=== PATIENT | female | born 1985 | race Caucasian/White ===

== ENCOUNTER 2016-02-29 07:59 | Outpatient (CLI) | payer OTHER ==
[~2016-02-29 07:59] MED LIST: ABILIFY5 MG PO; ACYCLOVIR200 MG PO; PRENATA1 PO; PRENATAL1 TAB
== END 2016-02-29 23:00 ==
LOC: LAB SRH 07:59
DX: Z34.82 Encounter for supervision of other normal pregnancy, second trimester (principal)
CPT/HCPCS: 90039; 90074; 91162; 91163

== ENCOUNTER 2016-03-19 19:31 | Outpatient (CLI) | payer OTHER | END 2016-03-19 20:20 | disposition home or self-care (01) | LOC: OBC SRH 19:31 → OB SRH 19:34 → OBC SRH 20:20 | PROC: 4A0HXCZ Measurement of Products of Conception, Cardiac Rate, External Approach (ICD-10-PCS; principal; 2016-03-19) | DX: O36.8130 Decreased fetal movements, third trimester, not applicable or unspecified (principal); Z3A.33 33 weeks gestation of pregnancy | CPT/HCPCS: 40003; 40016 ==

== ENCOUNTER 2016-04-25 21:56 | Outpatient (CLI) | payer OTHER | END 2016-04-25 23:05 | disposition home or self-care (01) | LOC: OBC SRH 21:56 → OB SRH 22:42 → OBC SRH 23:05 | PROC: 4A0HXCZ Measurement of Products of Conception, Cardiac Rate, External Approach (ICD-10-PCS; principal; 2016-04-25) | DX: O47.1 False labor at or after 37 completed weeks of gestation (principal); Z3A.38 38 weeks gestation of pregnancy ==

== ENCOUNTER 2016-04-30 06:45 | Inpatient (IN) | payer OTHER ==
[~2016-04-30] VITALS: Ht 168.9 cm; Wt 96.2 kg
[2016-04-30] VITALS (7 sets, daily range): BP systolic 97–119; BP diastolic 55–63
[2016-05-01 00:17] VITALS: BP 112/58
[2016-05-01 04:52] VITALS: BP 106/55
--- NOTE | 2016-05-01 08:22 | Provider's Discharge Care Plan ---
Problem, Goal, Plan Problem List 1. care following vaginal delivery Goals: Improve disease control Instructions: Follow up as needed
--- NOTE | 2016-05-01 08:22 | Provider's Discharge Care Plan ---
Problem, Goal, Plan Problem List 1. care following vaginal delivery Goals: Improve disease control Instructions: Follow up as needed
[2016-05-01 08:32] VITALS: BP 116/68
== END 2016-05-01 15:15 | disposition home or self-care (01) | DRG 560 ==
LOC: OBC SRH 06:45 → OB SRH 06:48 → OBC SRH 09:27 → OB SRH 05-01 14:08
PROVIDERS: ADMIT Obstetrics & Gynecology
PROC: 10E0XZZ Delivery of Products of Conception, External Approach (ICD-10-PCS; principal; 2016-04-30)
DX: O69.81X0 Labor and delivery complicated by cord around neck, without compression, not applicable or unspecified (principal); Z37.0 Single live birth; O98.32 Other infections with a predominantly sexual mode of transmission complicating childbirth; A60.04 Herpesviral vulvovaginitis; Z79.899 Other long term (current) drug therapy; Z3A.39 39 weeks gestation of pregnancy
CPT/HCPCS: 40011; 83411; 90001; 90074; 90155; 91004; 91162; 91163; 95059

== ENCOUNTER 2016-06-13 12:09 | Emergency (ER) | payer OTHER ==
--- NOTE | 2016-06-13 14:10 | ED CLINICAL REPORT ---
Clinical Report - Physicians/Mid Levels [facility] [address] [place] [address] 06/13/2016 12:09 Patient: MARC BURR *This is a preliminary document and is subject to change Time Seen: 12:21; initial patient contact. Arrived- By private vehicle. Historian- patient. HISTORY OF PRESENT ILLNESS Chief Complaint: VAGINAL BLEEDING. This started about 3 days ago and still present. It has been constant. The symptoms are described as mild. Modifying factors. Not worsened by anything. Not relieved by anything. The patient has had mild, aching, intermittent abdominal pain. The pain is described as located in the upper abdomen. No pelvic pain, vaginal pain, low back pain, flank pain or vaginal discharge. No pain with urination, urinary frequency, urgency of urination or hematuria. The patient has had irregular periods. Not sexually active. Denies current . Similar symptoms previously: None. Recent medical care: Not recently seen/assessed. REVIEW OF SYSTEMS No nausea, vomiting, diarrhea, fever or chills. All systems otherwise negative, except as recorded above. PAST HISTORY ( Suture Removal. Laceration.). SOCIAL HISTORY Never smoker. No alcohol use or drug use. ADDITIONAL NOTES The nursing notes have been reviewed. PHYSICAL EXAM Vital Signs: 06/13/2016 12:27 BP: 117/71. HR: 65. RR: 16. O2 saturation: 100%. Temp: 98.3 F. Have been reviewed as normal. Appearance: Alert. Oriented X3. No acute distress. HEENT: Normal external inspection. ENT: Pharynx normal. CVS: Heart sounds normal. Rate normal. Rhythm normal. Respiratory: No respiratory distress. Breath sounds normal. Abdomen: Soft and nontender. Bowel sounds normal. No organomegaly. No mass. Skin: Skin warm and dry. Normal skin color. No rash. Extremities: No lower extremity edema. Neuro: Oriented X 3. LABS, X-RAYS, AND EKG Laboratory Tests: UA-Culture if indicated: (JESSICA: 06/13/2016 12:35) ( MsgRcvd 06/13/2016 12:55) Final results Test Result Flag Units (Reference) URINE COLOR YELLOW BLOOD TINGED URINE APPEARANCE CLOUDY URINE GLUCOSE NEGATIVE (NEGATIVE) URINE BILIRUBIN NEGATIVE (NEGATIVE) URINE KETONE NEGATIVE (NEGATIVE) URINE SPECIFIC GRAVITY 1.010 (1.010-1.030) URINE PH 7.5 (5.0-8.0) URINE PROTEIN NEGATIVE (NEGATIVE) URINE UROBILINOGEN 0.2 EU/dL (0.2-1.0) URINE NITRITE NEGATIVE (NEGATIVE) URINE BLOOD 3+ (NEGATIVE) URINE LEUK ESTERASE NEGATIVE (NEGATIVE) URINE RBC >100 rbc/hpf (0-1) URINE WBC 3-5 wbc/hpf (0-1) URINE EPITHELIAL CELLS 0-1 EPI/hpf (0-5) URINE BACTERIA TRACE (<1+) (NONE SEEN) URINE COMMENT CULT NOT INDICATED URINE CULTURES ARE SET-UP BASED ON THE FOLLOWING CRITERIA:POSITIVE NITRITEPOSITIVE LEUKOCYTE ESTERASEGREATER THAN 10 WHITE BLOOD CELLSMODERATE (2+) OR GREATER BACTERIA Urine: (JESSICA: 06/13/2016 12:35) ( [facility] 06/13/2016 12:48) Final results Test Result Flag Units (Reference) URINE NEGATIVE CBC w Diff: (JESSICA: 06/13/2016 13:00) ( [facility] 06/13/2016 13:14) Final results Test Result Flag Units (Reference) WHITE BLOOD COUNT 6.2 K/uL (4.5-11.5) RED BLOOD COUNT 4.56 M/uL (4.00-5.20) HEMOGLOBIN 12.6 gm/dL (12.0-16.0) HEMATOCRIT 37.9 % (36.0-46.0) MEAN CELL VOLUME 83 fL (80-100) MEAN CORPUSCULAR HGB 28 pg (26-34) MEAN CORPUSCULAR HGB CONC 33 g/dL (31-37) RED CELL DISTRIBUTION WIDTH 14.2 % (11.6-14.8) PLATELET COUNT 210 K/uL (150-400) NEUTROPHIL % 61.3 % (50-75) LYMPH % 31.4 % (25-40) MONO % 5.4 % (3-14) EOSINOPHIL % 1.5 % (0-4) BASOPHIL % 0.4 % (0-2) . [address]
--- NOTE | 2016-06-13 14:10 | ED ORDER SUMMARY ---
..... Patient: LENO May OrderSheet [facility] VisitID: [id number] [address] [place] [address] 31y, F Registration Date/Time: 06/13/2016 ORDER SHEET Weight: 86.1 kg (stated) Allergies: No Known Drug Allergy GENERAL ORDERS: Urine Urgent (12:37 06/13/2016 Margarita Fernández) (Ack 12:40 TBergley) (12:40 MWinterer R.N.) UA-Culture if indicated Urgent (12:37 06/13/2016 Margarita Fernández) (Ack 12:40 TBergley) (12:40 MWinterer R.N.) CBC w Diff Urgent (12:48 06/13/2016 Margarita Fernández) (Ack 13:01 TBergley) (13:39 TBergley) CMP Urgent (12:48 06/13/2016 Margarita Fernández) (Ack 13:01 TBergley) (13:39 TBergley) Amylase Urgent (12:48 06/13/2016 Margarita Fernández) (Ack 13:01 TBergley) (13:39 TBergley) Lipase Urgent (12:48 06/13/2016 Margarita Fernández) (Ack 13:01 TBergley) (13:39 TBergley) MEDICATION ORDERS: IV FLUIDS: ORDER SHEET NOTES: This document has not been locked and should not be saved in the medical record.
--- NOTE | 2016-06-13 14:10 | ED ORDER SUMMARY ---
..... Patient: LENO May OrderSheet [facility] VisitID: [id number] [address] [place] [address] 31y, F Registration Date/Time: 06/13/2016 ORDER SHEET Weight: 86.1 kg (stated) Allergies: No Known Drug Allergy GENERAL ORDERS: Urine Urgent (12:37 06/13/2016 Margarita Fernández) (Ack 12:40 TBergley) (12:40 MWinterer R.N.) UA-Culture if indicated Urgent (12:37 06/13/2016 Margarita Fernández) (Ack 12:40 TBergley) (12:40 MWinterer R.N.) CBC w Diff Urgent (12:48 06/13/2016 Margarita Fernández) (Ack 13:01 TBergley) (13:39 TBergley) CMP Urgent (12:48 06/13/2016 Margarita Fernández) (Ack 13:01 TBergley) (13:39 TBergley) Amylase Urgent (12:48 06/13/2016 Margarita Fernández) (Ack 13:01 TBergley) (13:39 TBergley) Lipase Urgent (12:48 06/13/2016 Margarita Fernández) (Ack 13:01 TBergley) (13:39 TBergley) MEDICATION ORDERS: IV FLUIDS: ORDER SHEET NOTES: This document has not been locked and should not be saved in the medical record.
--- NOTE | 2016-06-13 14:10 | ED CLINICAL REPORT ---
Clinical Report - Physicians/Mid Levels [facility] [address] [place] [address] 06/13/2016 12:09 Patient: MARC BURR *This is a preliminary document and is subject to change Time Seen: 12:21; initial patient contact. Arrived- By private vehicle. Historian- patient. HISTORY OF PRESENT ILLNESS Chief Complaint: VAGINAL BLEEDING. This started about 3 days ago and still present. It has been constant. The symptoms are described as mild. Modifying factors. Not worsened by anything. Not relieved by anything. The patient has had mild, aching, intermittent abdominal pain. The pain is described as located in the upper abdomen. No pelvic pain, vaginal pain, low back pain, flank pain or vaginal discharge. No pain with urination, urinary frequency, urgency of urination or hematuria. The patient has had irregular periods. Not sexually active. Denies current . Similar symptoms previously: None. Recent medical care: Not recently seen/assessed. REVIEW OF SYSTEMS No nausea, vomiting, diarrhea, fever or chills. All systems otherwise negative, except as recorded above. PAST HISTORY ( Suture Removal. Laceration.). SOCIAL HISTORY Never smoker. No alcohol use or drug use. ADDITIONAL NOTES The nursing notes have been reviewed. PHYSICAL EXAM Vital Signs: 06/13/2016 12:27 BP: 117/71. HR: 65. RR: 16. O2 saturation: 100%. Temp: 98.3 F. Have been reviewed as normal. Appearance: Alert. Oriented X3. No acute distress. HEENT: Normal external inspection. ENT: Pharynx normal. CVS: Heart sounds normal. Rate normal. Rhythm normal. Respiratory: No respiratory distress. Breath sounds normal. Abdomen: Soft and nontender. Bowel sounds normal. No organomegaly. No mass. Skin: Skin warm and dry. Normal skin color. No rash. Extremities: No lower extremity edema. Neuro: Oriented X 3. LABS, X-RAYS, AND EKG Laboratory Tests: UA-Culture if indicated: (JESSICA: 06/13/2016 12:35) ( MsgRcvd 06/13/2016 12:55) Final results Test Result Flag Units (Reference) URINE COLOR YELLOW BLOOD TINGED URINE APPEARANCE CLOUDY URINE GLUCOSE NEGATIVE (NEGATIVE) URINE BILIRUBIN NEGATIVE (NEGATIVE) URINE KETONE NEGATIVE (NEGATIVE) URINE SPECIFIC GRAVITY 1.010 (1.010-1.030) URINE PH 7.5 (5.0-8.0) URINE PROTEIN NEGATIVE (NEGATIVE) URINE UROBILINOGEN 0.2 EU/dL (0.2-1.0) URINE NITRITE NEGATIVE (NEGATIVE) URINE BLOOD 3+ (NEGATIVE) URINE LEUK ESTERASE NEGATIVE (NEGATIVE) URINE RBC >100 rbc/hpf (0-1) URINE WBC 3-5 wbc/hpf (0-1) URINE EPITHELIAL CELLS 0-1 EPI/hpf (0-5) URINE BACTERIA TRACE (<1+) (NONE SEEN) URINE COMMENT CULT NOT INDICATED URINE CULTURES ARE SET-UP BASED ON THE FOLLOWING CRITERIA:POSITIVE NITRITEPOSITIVE LEUKOCYTE ESTERASEGREATER THAN 10 WHITE BLOOD CELLSMODERATE (2+) OR GREATER BACTERIA Urine: (JESSICA: 06/13/2016 12:35) ( [facility] 06/13/2016 12:48) Final results Test Result Flag Units (Reference) URINE NEGATIVE CBC w Diff: (JESSICA: 06/13/2016 13:00) ( [facility] 06/13/2016 13:14) Final results Test Result Flag Units (Reference) WHITE BLOOD COUNT 6.2 K/uL (4.5-11.5) RED BLOOD COUNT 4.56 M/uL (4.00-5.20) HEMOGLOBIN 12.6 gm/dL (12.0-16.0) HEMATOCRIT 37.9 % (36.0-46.0) MEAN CELL VOLUME 83 fL (80-100) MEAN CORPUSCULAR HGB 28 pg (26-34) MEAN CORPUSCULAR HGB CONC 33 g/dL (31-37) RED CELL DISTRIBUTION WIDTH 14.2 % (11.6-14.8) PLATELET COUNT 210 K/uL (150-400) NEUTROPHIL % 61.3 % (50-75) LYMPH % 31.4 % (25-40) MONO % 5.4 % (3-14) EOSINOPHIL % 1.5 % (0-4) BASOPHIL % 0.4 % (0-2) . [address]
--- NOTE | 2016-06-13 14:10 | ED NURSING NOTES ---
Clinical Report - Nurses [facility] [address] [place] [address] 06/13/2016 12:09 Patient: MARC BURR TRIAGE Triage time 12:27. Acuity: LEVEL 3. Chief Complaint: ABDOMINAL PAIN. Alert. No acute distress. ( Pt. states she had a vag. delivery x6 weeks ago with no complications. She picked up her older son x5 weeks and felt a really bad pain. "It felt like something tearing." The pain then went away but returned x1 week ago. Pt. also states her post bleeding had stopped completely after 3 weeks post delivery but she started bleeding again. She is bleeding through a regular tampon every 3 hours.). SEPSIS SCREEN: Sepsis Screen. Negative (no infection suspected/documented). RALF COMA SCORE: Ralf Coma Scale: 15- eyes open spontaneously (4); best verbal response- oriented x 4 (5); best motor response- obeys commands (6). --12:34 Zuleika Escobar R.N. 12:27 06/13/16. BP: 117/71. HR: 65. RR: 16. O2 saturation: 100%. Temp: 98.3 F. Pain level now 4/10. --12:34 Zuleika Escobar R.N. Weight: 86.1 kg stated. Height/Length: 66 inches Per Patient. BMI: 30.7. --12:29 Zuleika Escobar R.N. Medications Tylenol Oral, as needed. --12:31 Zuleika Escobar R.N. Allergies No Known Drug Allergy. --12:31 Zuleika Escobar R.N. History Arrived by private vehicle. Historian: patient. Unaccompanied. Primary physician (Cherie). Onset. (5 weeks ago first started then went away. Then one week ago the pain returned and it "gradually keeps getting worse."). Treatment RELOCATION SERVICES SPECIALIST: None. PAST MEDICAL HX: Immunizations: up-to-date. 5. Para 4. Abortions 1. SOCIAL HX: Smoker- current status unknown. Never smoker. No alcohol use or drug use. No recent travel. No infectious disease exposure. No known contact with a sick individual. ABUSE ASSESSMENT: Abuse assessment: The patient was asked "Do you feel safe in your home?" and "Has anyone hurt you or threatened to hurt you?". No report of abuse. NUTRITIONAL RISK ASSESSMENT: The nutritional risk assessment revealed no deficiencies. FUNCTIONAL ASSESSMENT: Functional assessment: no impairments noted. LEARNING NEEDS ASSESSMENT: The learning needs assessment revealed no barriers. --12:34 Zuleika Escobar R.N. PROBLEMS: Suture Removal. Laceration. --12:31 Zuleika Escobar R.N. Interventions ID band on patient. Ambulatory. --12:34 Zuleika Escobar R.N. PHYSICAL ASSESSMENT Ambulatory to room. GENERAL / NEURO / PSYCH: Alert. Appears in no acute distress. HEENT: Mucous membranes are pink. RESPIRATORY: Respirations not labored. CVS: Capillary refill less than 2 seconds. GI / : Abdomen soft. Abdominal tenderness. Guarding present in the right upper quadrant. SKIN: Skin is warm and dry. --12:35 Zuleika Escobar R.N. NURSING PROGRESS NOTES Patient gowned. Head of bed elevated. Two patient identifiers checked. Call light placed in reach. Side rails up x 2. Bed placed in lowest position. Brakes of bed on. Patient ready for evaluation- chart flagged. --12:35 Zuleika Escobar R.N. 12:40 06/13/16. Checked patient name and birthdate: patient confirmed. Clean catch urine collected with return of yellow-colored clear urine; sample sent to lab for urinalysis. Specimen labeled in the presence of the patient. --12:40 Natali Low R.N. 13:15. Patient ID band checked for patient name, birthdate and medical record number: patient confirmed. Blood samples drawn from the right antecubital space with 23g butterfly by nurse per protocol ; labeled in presence of the patient and sent to lab: rainbow set. --13:28 Zuleika Escobar R.N. Patient informed about reason for wait. --13:29 Zuleika Escobar R.N. 13:28 06/13/16. BP: 104/65. HR: 64. RR: 16. O2 saturation: 100%. --13:29 Zuleika Escobar R.N. DISPOSITION / DISCHARGE No learning barriers present. Discharge instructions provided and reviewed with the patient. Patient verbalized understanding. Written instructions provided in Syriac. The patient was discharged by the physician. She was discharged home. She left the Emergency Department ambulatory and via private vehicle. Patient driving. ( pt dc only by this RN, dc instructions gone over with pt, pt verbalized understanding, ambulated to lobby with steady gait.). --14:23 Shakira Valencia R.N. 14:22 06/13/16. BP: 117/76. HR: 66. RR: 15. O2 saturation: 99%. Temp: 98 F. Pain level now: 05/31. --14:23 Shakira Valencia R.N. Locked/Released at 07/15/2016 10:04 by Kayce Granger R.N.
--- NOTE | 2016-07-15 10:04 | ED MAR SUMMARY ---
..... Medication Administration Record [facility] [address] [place], [place] [id number] Patient: MARC BURR Visit ID: [id number] 31y, F Weight: 86.1 kg Height/Length: 66 in BMI: 30.7 ALLERGIES: No Known Drug Allergy
--- NOTE | 2016-07-15 10:04 | ED MED RECONCILIATION SUMMARY ---
Patient: MARC BURR Medication Reconciliation Report [facility] VisitID: [id number] [address] [place] [address] 31y, F Registration Date/Time: 06/13/2016 Weight: 86.1 kg Height/Length: 66 in. BMI: 30.7 ALLERGIES: No Known Drug Allergy The patient's Home Medications are listed below: CONTINUE TAKING THE FOLLOWING MEDICATIONS: Tylenol Oral The source(s) of the original Home Medication information: Not obtained. The following Medications were given to the patient in the Emergency Department: None. The following Medications were prescribed to the patient: None.
--- NOTE | 2016-07-15 10:04 | ED MAR SUMMARY ---
..... Medication Administration Record [facility] [address] [place], [place] [id number] Patient: MARC BURR Visit ID: [id number] 31y, F Weight: 86.1 kg Height/Length: 66 in BMI: 30.7 ALLERGIES: No Known Drug Allergy
--- NOTE | 2016-07-15 10:04 | ED MED RECONCILIATION SUMMARY ---
Patient: MARC BURR Medication Reconciliation Report [facility] VisitID: [id number] [address] [place] [address] 31y, F Registration Date/Time: 06/13/2016 Weight: 86.1 kg Height/Length: 66 in. BMI: 30.7 ALLERGIES: No Known Drug Allergy The patient's Home Medications are listed below: CONTINUE TAKING THE FOLLOWING MEDICATIONS: Tylenol Oral The source(s) of the original Home Medication information: Not obtained. The following Medications were given to the patient in the Emergency Department: None. The following Medications were prescribed to the patient: None.
--- NOTE | 2016-07-15 10:04 | ED DISCHARGE INSTRUCTIONS ---
Patient: MARC BURR General Instructions [facility] VisitID: [id number] [place] [address] 31y, F Registration Date/Time: 06/13/2016 Acute right upper quadrant and epigastric abdominal pain of undetermined cause. Mild pre-menopausal vaginal bleeding. INSTRUCTIONS Apply ice for 20 minutes four times a day until better. Don't apply ice directly to skin. Your Current Medications: CONTINUE TAKING THE FOLLOWING MEDICATIONS: Tylenol Oral : prn. Follow-up: Follow up with your doctor if not better. Call for an appointment. Screening today revealed the patient's blood pressure to be in the normal range. ADDITIONAL INFORMATION Abdominal Pain, Unknown Cause (Female) The exact cause of your abdominal (stomach) pain is not certain. This does not mean that this is something to worry about, or the right tests were not done. Everyone likes to know the exact cause of the problem, but sometimes with abdominal pain, there is no clear-cut cause, and this could be a good thing. The good news is that your symptoms can be treated, and you will feel better. Your condition does not seem serious now; however, sometimes the signs of a serious problem may take more time to appear. For this reason,it is important for you to watch for any new symptoms, problems,or worsening of your condition. Over the next few days, the abdominal pain may come and go, or be continuous. Other common symptoms can include nausea and vomiting. Sometimes it can be difficult to tell if you feel nauseous, you may just feel bad and not associate that feeling with nausea. Constipation, diarrhea, and a fever may go along with the pain. The pain may continue even if treated correctly over the following days. Depending on how things go, sometimes the cause can become clear and may require further or different treatment. Additional evaluations, medications, or tests may be needed. Home care Your health care provider may prescribe medications for pain, symptoms, or an infection. Follow the health care provider's instructions for taking these medications. General care Rest until your next exam. No strenuous activities. Try to find positions that ease discomfort. A small pillow placed on the abdomen may help relieve pain. Something warm on your abdomen (such as a heating pad) may help, but be careful not to burn yourself. Diet Do not force yourself to eat, especially if having cramps, vomiting, or diarrhea. Water is important so you do not get dehydrated. Soup may also be good. Sports drinks may also help, especially if they are not too acidic. Make sure you don't drink sugary drinks as this can make things worse. Take liquids in small amounts. Do not guzzle them. Caffeine sometimes makes the pain and cramping worse. Avoid dairy products if you have vomiting or diarrhea. Don't eat large amounts at a time. Wait a few minutes between bites. Eat a diet low in fiber (called a low-residue diet). Foods allowed include refined breads, white rice, fruit and vegetable juices without pulp, tender meats. These foods will pass more easily through the intestine. Avoid whole-grain foods, whole fruits and vegetables, meats, seeds and nuts, fried or fatty foods, dairy, alcohol and spicy foods until your symptoms go away. Follow-up care Follow up with your health care provider as instructed, or if your pain does not begin to improve in the next 24 hours. When to seek medical care Seek prompt medical care if any of the following occur: Pain gets worse or moves to the right lower abdomen New or worsening vomiting or diarrhea Swelling of the abdomen Unable to pass stool for more than three days Fever of 100.4F (38C) or higher, or as directed by your healthcare provider. Blood in vomit or bowel movements (dark red or black color) Jaundice (yellow color of eyes and skin) Weakness, dizziness Chest, arm, back, neck or jaw pain Unexpected vaginal bleeding or missed period Call 911 Call emergency services if any of the following occur: Trouble breathing Confusion Fainting or loss of consciousness Rapid heart rate Seizure You have been given the following additional information: Abdominal Pain, Unknown Cause, (Female) (Electronically signed by Balwinder Fox Dr. 06/13/2016 14:35)
== END 2016-06-13 14:22 | disposition home or self-care (01) ==
LOC: ED SRH 12:09
DX: R10.11 Right upper quadrant pain (principal); R10.13 Epigastric pain; N93.9 Abnormal uterine and vaginal bleeding, unspecified
CPT/HCPCS: 90004; 90100; 92235; 92530; 93070; 95059